=== PATIENT | male | born 1940 | race Caucasian/White ===

== ENCOUNTER → 2021-02-04 10:47 | Outpatient (BNVA) | payer MEDICARE, OTHER, SELFPAY | PROVIDERS: Referring Provider Student in an Organized Health Care Education/Training Program; Visit Provider Specialist | DX: G62.9 Polyneuropathy, unspecified (principal) | CPT/HCPCS: 36415; 82607; 82746; 83921; 84443; 85651; 86140; 86334; 86431; 99204 ==

== ENCOUNTER 2021-02-04 13:14 | Outpatient (CLI) | payer MEDICARE, OTHER, SELFPAY ==
[2021-02-04 14:18] LABS: C Reactive Protein 1.5 mg/L (0.0-4.9); Thyroid Stimulating Hormone 3.22 uIU/mL (0.27-4.20); Vitamin B12 546 pg/mL (232-1245)
[2021-02-04 14:32] LABS: Folate Level 16.1 ng/mL (4.5-32.2)
[2021-02-05 11:51] LABS: Erythrocyte Sedimentation Rate 14 mm/hr (0-10)
[2021-02-10 18:51] LABS: Methylmalonic Acid 171 nmol/L (87-318)
== END 2021-02-04 13:15 | disposition home or self-care (01) ==
LOC: LAB 13:17
PROVIDERS: Visit Provider Specialist
DX: G62.9 Polyneuropathy, unspecified (principal)
CPT/HCPCS: 36415; 82607; 82746; 83921; 84443; 85651; 86140; 86334; 86431

== ENCOUNTER → 2022-09-09 10:57 | Outpatient (BNVA) | payer MEDICARE, OTHER, SELFPAY | PROVIDERS: Visit Provider Nurse Practitioner Family | DX: L57.0 Actinic keratosis (principal); L82.1 Other seborrheic keratosis; L57.8 Other skin changes due to chronic exposure to nonionizing radiation; L81.4 Other melanin hyperpigmentation; D22.5 Melanocytic nevi of trunk; L85.3 Xerosis cutis; Z85.828 Personal history of other malignant neoplasm of skin; Z72.0 Tobacco use | CPT/HCPCS: 17004; 99213 ==

== ENCOUNTER → 2023-04-08 10:36 | Outpatient (BNVA) | payer MEDICARE, OTHER, SELFPAY | PROVIDERS: Visit Provider Dermatology | DX: Z85.828 Personal history of other malignant neoplasm of skin (principal); L57.0 Actinic keratosis; L82.0 Inflamed seborrheic keratosis; L21.8 Other seborrheic dermatitis; D36.14 Benign neoplasm of peripheral nerves and autonomic nervous system of thorax | CPT/HCPCS: 17000; 17110; 99214 ==

== ENCOUNTER → 2023-10-18 13:22 | Outpatient (BNVA) | payer MEDICARE, OTHER, SELFPAY | PROVIDERS: Visit Provider Nurse Practitioner Family | DX: L21.8 Other seborrheic dermatitis (principal); D36.14 Benign neoplasm of peripheral nerves and autonomic nervous system of thorax; L82.1 Other seborrheic keratosis; L57.0 Actinic keratosis; Z85.828 Personal history of other malignant neoplasm of skin | CPT/HCPCS: 17000; 99213 ==